=== PATIENT | female | born 1945 | race Native Hawaiian/Other Pacific Islander ===

== ENCOUNTER 2016-11-18 20:33 | Emergency (ER) | payer OTHER ==
[2016-11-18 20:33] VITALS: BMI 23.0
[2016-11-18 20:37] VITALS: RESP 18
[2016-11-18] MEDS ORDERED: Albuterol 0.083% Inhal Sol (2.5 mg/3 mL) UD IH STA (21:21)
[2016-11-18] MEDS ORDERED: Albuterol-Ipratrop 3 mg / 0.5 (3 ml) UD IH STA (21:21)
[2016-11-18] MEDS ORDERED: Albuterol-Ipratrop 3 mg / 0.5 (3 ml) UD ONE (21:31)
[2016-11-18] MEDS ORDERED: Albuterol 0.083% Inhal Sol (2.5 mg/3 mL) UD ONE (21:31)
[2016-11-18] MEDS ORDERED: Ipratropium 0.02% Inhal Soln (0.5 mg/2.5 ml) UD IH ONE (21:31)
--- NOTE | 2016-11-18 22:12 | C.PDOC ---
History Of Present Illness The patient, a 71 y/o female, presents to the ED for evaluation of productive cough and chest congestion which began around 1 week ago. Patient states her cough is productive of thick yellow-tinged sputum. She reports sensation of tightness and discomfort in her chest. She denies fever, chills, shortness of breath. Time Seen by Provider: 11/18/16 21:02 Chief Complaint (Nursing): Shortness Of Breath History Per: Patient History/Exam Limitations: no limitations Current Symptoms Are (Timing): Still Present Quality: Tightness Current Respiratory Medications: See Home Med List Associated Symptoms: Productive Cough. denies: Fever, Chills Additional History Per: Patient Past Medical History Reviewed: Historical Data, Nursing Documentation, Vital Signs Vital Signs: Last Vital Signs Temp 98.1 F 11/18/16 20:36 Pulse 94 H 11/18/16 20:36 Resp 18 11/18/16 21:13 BP 156/85 H 11/18/16 20:36 Pulse Ox 100 11/18/16 22:16 - Medical History PMH: Anemia, Atrial Fibrillation, Cardia Arrhythmia (atrial fib), Colonic Polyps , Diabetes, HTN Denies: Chronic Kidney Disease Surgical History: No Surg Hx - [facility] Procedures CATARAC PHACOEMULS/ASPIR (02/08/14) ENDOSC POLYPECTOMY OF LG INTEST (07/26/13) INSERT LENS AT CATAR EXT (02/08/14) PACKED CELL TRANSFUSION (02/05/13) PLATELET TRANSFUSION (02/05/13) Family History: States: Unknown Family Hx - Social History Hx Tobacco Use: No Hx Alcohol Use: No Hx Substance Use: No - Immunization History Hx Tetanus Toxoid Vaccination: No Hx Influenza Vaccination: Yes Hx Pneumococcal Vaccination: Yes Review Of Systems Except As Marked, All Systems Reviewed And Found Negative. Constitutional: Negative for: Fever, Chills Cardiovascular: Positive for: Other (+chest tightness and discomfort ) Physical Exam - Physical Exam Appears: Non-toxic, No Acute Distress Skin: Normal Color, Warm, Dry Head: Atraumatic, Normacephalic Eye(s): bilateral: Normal Inspection Oral Mucosa: Moist Neck: Supple Chest: Symmetrical, No Deformity, No Tenderness Cardiovascular: Rhythm Regular, No Murmur Respiratory: No Rales, Rhonchi (coarse, bilaterally ), Wheezing (diffuse), Other (+productive cough noted ) Back: Normal Inspection, No Vertebral Tenderness, No Paraspinal Tenderness Extremity: Normal ROM, Capillary Refill (less than 2 seconds ) Neurological/Psych: Oriented x3, Normal Speech, Normal Cognition Gait: Steady ED Course And Treatment O2 Sat by Pulse Oximetry: 100 (on RA) Pulse Ox Interpretation: Normal - Radiology CXR: Interpreted by Me CXR Interpretation: Yes: No Acute Disease (unchanged since 2013) Progress Note: CXR ordered and reviewed. Patient received nebulizer treatment. Reevaluation Time: 22:53 Reassessment Condition: Improved (Better air movement and less cough. No wheezing present) Disposition Counseled Patient/Family Regarding: Studies Performed, Diagnosis, Need For Followup, Rx Given - Disposition Referrals: Kaleigh Romeo MD [Staff Provider] - Disposition: HOME/ ROUTINE Disposition Time: 22:54 Condition: IMPROVED Prescriptions: Albuterol HFA [Ventolin HFA 90 mcg/actuation (8 g)] 2 puff IH [id number] PRN #1 inhaler PRN Reason: Wheezing Azithromycin [Zithromax] 250 mg PO DAILY #6 tab Instructions: Acute Bronchitis (ED) - Clinical Impression Clinical Impression: Bronchitis - Scribe Statement The provider has reviewed the documentation as recorded by the Scribe (Nuria Dorantes) Provider Attestation: All medical record entries made by the Scribe were at my direction and personally dictated by me. I have reviewed the chart and agree that the record accurately reflects my personal performance of the history, physical exam, medical decision making, and the department course for this patient. I have also personally directed, reviewed, and agree with the discharge instructions and disposition.
[2016-11-18 23:05] VITALS: BP 131/79; PULSE 101; TEMP 97.9; O2SAT 98
--- NOTE | 2016-11-19 10:38 | RAD ---
HISTORY: cough COMPARISON: 01/24/2014 TECHNIQUE: Chest PA and lateral FINDINGS: LUNGS: Mild venous congestion. Right hilar prominence. Patchy opacity at the left lung base laterally may represent a prominent epicardial fat pad. PLEURA: No significant pleural effusion identified. No pneumothorax apparent. CARDIOVASCULAR: Normal. OSSEOUS STRUCTURES: No significant abnormalities. VISUALIZED UPPER ABDOMEN: Normal. OTHER FINDINGS: None. IMPRESSION: No significant interval change.
== END 2016-11-18 23:05 | disposition home or self-care (01) ==
LOC: C.ER 20:33
DX: J40 Bronchitis, not specified as acute or chronic (principal)

== ENCOUNTER 2018-08-25 09:16 | Outpatient (CLI) | payer OTHER | END 2018-08-25 09:17 | disposition home or self-care (01) | LOC: C.MAMMO 09:16 | DX: Z12.31 Encounter for screening mammogram for malignant neoplasm of breast (principal) ==